=== PATIENT | female | born 1965 | race Caucasian/White ===

== ENCOUNTER 2021-11-24 14:55 | Emergency (ER) | payer SELFPAY ==
[~2021-11-24] VITALS: Ht 152.4 cm; Wt 50.0 kg
[2021-11-24 19:13] VITALS: BP 127/78
== END 2021-11-24 19:14 | disposition home or self-care (01) ==
LOC: ER 15:01
DX: T51.0X1A Toxic effect of ethanol, accidental (unintentional), initial encounter (principal); Y92.488 Other paved roadways as the place of occurrence of the external cause
CPT/HCPCS: 99283